=== PATIENT | male | born 1960 | race African-American/Black ===

== ENCOUNTER 2016-12-26 15:59 | Emergency (ER) ==
[2016-12-26 16:06] VITALS: BP 127/82; TEMP 97.2; BMI 27.6
--- NOTE | 2016-12-26 16:27 | ED.PDOC ---
General ED Provider: Dr. GIUSEPPE DAVE Chief Complaint: Scrotal Pain Stated Complaint: Left testicular pain; off and on 7 or 8 months Time Seen by Physician: 16:10 Mode of Arrival: Walk-In Information Source: Patient Exam Limitations: No limitations Primary Care Provider: NOLAN YATES Nursing and Triage Documentation Reviewed and Agree: Yes Review of Systems - Review Of Systems Constitutional: Reports: No symptoms : Reports: Pain (L testicle) Skin: Reports: No symptoms All Other Systems: Reviewed and Negative Past Medical History - Past Medical History Previously Healthy: Yes Endocrine: Reports: None Cardiovascular: Reports: None Respiratory: Reports: None Hematological: Reports: None Gastrointestinal: Reports: None Genitourinary: Reports: None Neuro/Psych: Reports: None Musculoskeletal: Reports: None Cancer: Reports: None - Surgical History General Surgical History: Reports: None - Family History Family History: Reports: None - Social History Smoking Status: Never smoker Hx Substance Use: No Alcohol Screening: None Physical Exam - Physical Exam Appearance: Well-appearing Ill-appearing: None Pain Distress: None Musculoskeletal: Normal strength, ROM intact Skin: Warm, Dry, Normal color Neurological: Sensation intact, Motor intact, Reflexes intact, Alert, Oriented Psychiatric: Affect appropriate, Mood appropriate Critical Care Note - Critical Care Note Total Time (mins): 10 Course - Course Orders, Labs, Meds: Lab Review 12/26/16 16:07 Urine Color Yellow Urine Clarity Clear Urine pH 6.5 Ur Specific [place] 1.015 Urine Protein Negative Urine Glucose (UA) Negative Urine Ketones Negative Urine Blood Trace-intact Urine Nitrite Negative Urine Bilirubin Negative Urine Urobilinogen >=8.0 Ur Leukocyte Esterase Trace Urine Microscopic RBC 2-5 Urine Microscopic WBC 0-2 Ur Squamous Epith Cells 5-10 Orders Category Date Time Status URINALYSIS C & S IF INDICATED Stat LAB 12/26/16 16:07 Completed Vital Signs: Temp Pulse Resp BP Pulse Ox 12/26/16 16:00 97.2 F L 61 16 127/82 98 Departure - Departure Time of Disposition: 17:36 Disposition: HOME SELF-CARE Discharge Problem: Epididymitis Instructions: Epididymitis (ED) Condition: Good Pt referred to PMD for follow-up: Yes (Call for appointment) Additional Instructions: Take antibiotic as prescribed; follow up with primary care provider. Prescriptions: Ciprofloxacin HCl [Cipro] 500 mg PO 1-2XD #20 tablet Allergies/Adverse Reactions: Allergies No Known Drug Allergies Adverse Reaction (Verified 12/26/16 16:04) Home Medications: Ambulatory Orders Ciprofloxacin HCl [Cipro] 500 mg PO 1-2XD #20 tablet 12/26/16
[2016-12-26 16:35] LABS: BILIRUBIN,URINE Negative (NEGATIVE); KETONES,URINE Negative (NEGATIVE); LEUKOCYTE ESTERASE ,URINE Trace (NEGATIVE); NITRITE,URINE Negative (NEGATIVE); PH,URINE 6.5 (5-9); PROTEIN,URINE Negative (NEGATIVE); URINE, BLOOD Trace-intact (NEGATIVE)
[2016-12-26 16:36] LABS: ADD URINE MICROSCOPIC YES
== END 2016-12-26 17:47 | disposition home or self-care (01) ==
LOC: ED 15:59
DX: N45.1 Epididymitis (principal)
CPT/HCPCS: 81001; 99283

== ENCOUNTER 2018-07-05 10:05 | Emergency (ER) ==
[2018-07-05 10:15] VITALS: BP 121/67; TEMP 97.1; BMI 26.6
--- NOTE | 2018-07-05 11:17 | US ---
EXAM: Scrotal ultrasound HISTORY: Pain, swelling 2 weeks COMPARISON: None TECHNIQUE: Scrotal ultrasound was performed FINDINGS: Right: Right testicle measures 2.2 x 2.9 x 3.2 cm. Right testicle normal in echogenicity and vascul arity. Normal Doppler flow in right testicle. Right epididymis appears normal. Small right hydroce le. Left: Left testicle measures 1.9 x 2.7 x 3.7 cm. Left testicle normal in echogenicity vascularity. Normal Doppler flow in left testicle. Left epididymis appears normal. No left hydrocele or varicoc benigno. IMPRESSION: 1. Normal appearance right and left testicle and epididymis. 2. Small right hydrocele.
--- NOTE | 2018-07-05 11:35 | CT ---
EXAM: CT ABDOMEN AND PELVIS HISTORY: Scrotal swelling and pain TECHNIQUE: CT abdomen and pelvis without intravenous contrast. Images were reconstructed using 3 mm section thickness. Reformations were prepared. COMPARISON: None FINDINGS: There is a water attenuation 15 mm lesion of the anterior right hepatic lobe most consistent with a c yst. Spleen is within normal limits. Gallbladder, pancreas and adrenal glands appear normal. Kidne ys are normal. There is no hydronephrosis or nephrolithiasis. Visualized ureters are clear and nond ilated. Normal abdominal. Minimal atherosclerotic disease in the iliac level. Stomach appears normal. Normal appendix. Mild to moderate distal colon diverticulosis. Normal richard l gas pattern. Urinary bladder and prostate are unremarkable. There is no ascites or inflammatory i nfiltration of the abdominal fat. Ventral abdominal wall is intact. The scrotum is unremarkable within limits of CT. The bones reveal no acute abnormality. Lung bases are clear. No pneumoperitoneum. IMPRESSION: Diverticulosis of the distal colon without diverticulitis. Otherwise unremarkable exam.
--- NOTE | 2018-07-05 12:10 | ED.PDOC ---
General ED Provider: Dr. ROBIN CABRAL Chief Complaint: Non-specific Complaint Stated Complaint: DYSURIA AND TETSICULAR PAIN Time Seen by Physician: 10:10 (SEEN WITH NURSE AT ALL TIMES ) Information Source: Patient Exam Limitations: No limitations Primary Care Provider: NOLAN YATES Nursing and Triage Documentation Reviewed and Agree: Yes Does patient meet sepsis criteria?: No System Inflammatory Response Syndrome: Not Applicable Sepsis Protocol: For patient's 13 years and over: Temp is 96.8 and below OR 101 and greater Pulse >90 BPM Resp >20/minute Acutely Altered Mental Status Are patient's symptoms suggestive of a new infection, such as: -Pneumonia -Skin, Soft Tissue -Endocarditis -UTI -Bone, Joint Infection -Implantable Device -Acute Abdominal Infection -Wound Infection -Meningitis -Blood Stream Catheter Infection -Unknown Complaint Exam - Complaint/Exam Patient Complains of: Reports: Scrotal pain, Dysuria Onset/Duration: 2 DAYS Symptoms Are: Still present Timing: Intermittent Initial Severity: Mild Current Severity: Mild Location of Pain: Reports: Unable to describe Character: Reports: Dull Aggravating: Reports: None Alleviating: Reports: None Associated Signs and Symptoms: Reports: Dysuria. Denies: Diaphoresis, Back pain , Fever, Hematuria, Constipation, Blood in stool, Rectal pain, Appetite change, Nausea, Vomiting, Penile swelling, Penile discharge, Decreased urine output, Increased urine frequency, Increased thirst, Decreased activity, Lethargy, Scrotal pain, Scrotal swelling, Abdominal Pain Last Voided: P.T.A. Testicular Torsion Risk Factors: Reports: None Surgical Obstruction Risk Factors: Reports: None Related Surgical History: Reports: None Abdominal Findings: Present: None Genitalia Exam: Present: Normal findings Differential Diagnoses: Epididymitis, UTI, Ureteral Calculi Review of Systems - Review Of Systems Constitutional: Reports: No symptoms Eyes: Reports: No symptoms Ears, Nose, Mouth, Throat: Reports: No symptoms Respiratory: Reports: No symptoms Cardiac: Reports: No symptoms GI: Reports: No symptoms : Reports: Dysuria Musculoskeletal: Reports: No symptoms Skin: Reports: No symptoms Neurological: Reports: No symptoms Endocrine: Reports: No symptoms Hematologic/Lymphatic: Reports: No symptoms All Other Systems: Reviewed and Negative Past Medical History - Past Medical History Previously Healthy: Yes Endocrine: Reports: None Cardiovascular: Reports: None Respiratory: Reports: None Hematological: Reports: None Gastrointestinal: Reports: None Genitourinary: Reports: None Neuro/Psych: Reports: None Musculoskeletal: Reports: None Cancer: Reports: None - Surgical History General Surgical History: Reports: None - Family History Family History: Reports: None - Social History Smoking Status: Never smoker Hx Substance Use: No Alcohol Screening: None Physical Exam - Physical Exam Appearance: Well-appearing, No pain distress, Well-nourished Eyes: CALLY, EOMI, Conjunctiva clear ENT: Ears normal, Nose normal, Oropharynx normal Respiratory: Airway patent, Breath sounds clear, Breath sounds equal, Respirations nonlabored Cardiovascular: RRR, Pulses normal, No rub, No murmur GI/: Soft, Nontender, No masses, Bowel sounds normal, No Organomegaly Musculoskeletal: Normal strength, ROM intact, No edema, No calf tenderness Skin: Warm, Dry, Normal color Neurological: Sensation intact, Motor intact, Reflexes intact, Cranial nerves intact, Alert, Oriented Psychiatric: Affect appropriate, Mood appropriate Interpretation - Radiology Interpretation Radiology Interpretation By: Radiologist Radiology Results: No acute changes Exam Interpreted: CT Scan (U.S. WNL) Critical Care Note - Critical Care Note Total Time (mins): 0 Course - Course Hematology/Chemistry: 07/05/18 10:45 07/05/18 10:45 Orders, Labs, Meds: Lab Review 07/05/18 07/05/18 07/05/18 10:37 10:45 10:45 WBC 5.93 RBC 4.38 L Hgb 14.0 Hct 42.5 MCV 97.0 H MCH 32.0 H MCHC 32.9 RDW Coeff of [place]in[place] 11.6 Plt Count 308 Immature Gran % (Auto) 0.2 Neut % (Auto) 56.8 Lymph % (Auto) 29.0 [place] % (Auto) 10.6 H Eos % (Auto) 2.9 Baso % (Auto) 0.5 Immature Gran # (Auto) 0.0 Neut # (Auto) 3.4 Lymph # (Auto) 1.7 [place] # (Auto) 0.6 Eos # (Auto) 0.2 Baso # (Auto) 0.0 Sodium 142.1 Potassium 3.80 Chloride 106.7 Carbon Dioxide 28.8 Anion Gap 10.40 BUN 10.3 Creatinine 0.91 Estimated GFR (MDRD) 104.00 BUN/Creatinine Ratio 11.31 Glucose 90.7 Calcium 8.36 L Total Bilirubin 0.67 AST 22.1 ALT 15.5 Alkaline Phosphatase 68.1 Total Protein 7.32 Albumin 4.26 Globulin 3.06 Albumin/Globulin Ratio 1.39 Urine Color Yellow Urine Clarity Cloudy Urine pH 5.5 Ur Specific [place] >=1.030 Urine Protein 1+ Urine Glucose (UA) Negative Urine Ketones Negative Urine Blood 1+ Urine Nitrite Negative Urine Bilirubin Negative Urine Urobilinogen 1.0 Ur Leukocyte Esterase 1+ Urine Microscopic RBC 5-10 Urine Microscopic WBC 30-50 Ur Squamous Epith Cells 0-2 Orders Category Date Time Status CBC W/ AUTO DIFF Stat LAB 07/05/18 10:45 Completed COMPREHENSIVE METABOLIC PANEL Stat LAB 07/05/18 10:45 Completed UA [URINALYSIS C & S IF INDICATED] Stat LAB 07/05/18 10:37 Completed URINE CULTURE Stat LAB 07/05/18 10:[address] ABD/PEL WO RENAL STONE PROT Stat RADS 07/05/18 10:39 Completed U/S SCROTUM Stat RADS 07/05/18 10:30 Completed Vital Signs: Temp Pulse Resp BP Pulse Ox 07/05/18 10:07 97.1 F L 61 20 121/67 98 Departure - Departure Time of Disposition: 12:10 Disposition: HOME SELF-CARE Discharge Problem: Hydrocele in adult UTI (urinary tract infection) Qualifiers: Hematuria presence: without hematuria Instructions: Testicle Pain (ED), Hydrocele (ED), Urinary Tract Infection in Men (ED) Condition: Good Pt referred to PMD for follow-up: No IPMP verified?: No Additional Instructions: Please call your Family Physician as soon as possible to schedule a follow-up appointment. Prescriptions: Sulfamethoxazole/Trimethoprim [Bactrim Ds Tablet] 1 each PO BID #10 tablet Allergies/Adverse Reactions: Allergies No Known Drug Allergies Adverse Reaction (Verified 07/05/18 10:15) Home Medications: Ambulatory Orders Sulfamethoxazole/Trimethoprim [Bactrim Ds Tablet] 1 each PO BID #10 tablet 07/05
== END 2018-07-05 12:23 | disposition home or self-care (01) ==
LOC: ED 10:05
DX: N39.0 Urinary tract infection, site not specified (principal); N43.3 Hydrocele, unspecified
CPT/HCPCS: 36415; 74176; 80053; 81001; 85025; 87086; 99283